=== PATIENT | male | born 1925 | race Caucasian/White ===

== ENCOUNTER 2016-12-26 18:17 | Inpatient (IN) | payer MEDICARE, BC ==
[2016-12-26] MEDS ORDERED: Aspirin Low Dose CHEW TAB* 81 MG PO ONE (18:31)
[2016-12-26 19:26] LABS: Hematocrit 36 % (42-52); Hemoglobin 11.9 g/dl (14.0-18.0); Mean Corpuscular HGB Conc 33 g/dl (31-36); Mean Corpuscular Hemoglobin 31 pg (27-31); Mean Corpuscular Volume 94 fL (80-94); Mean Platelet Volume 8 um3 (7.4-10.4); Red Blood Count 3.82 10^6/ul (4.0-5.4); Red Cell Distribution Width 14 % (10.5-15); White Blood Count 7.8 10^3/ul (3.5-10.8)
--- NOTE | 2016-12-26 19:26 | RAD ---
Indication: Tachycardia. Single frontal view of the chest performed at 1850 hours was reviewed. Comparison is made with previous exam dated February 18, 2013. No mediastinal shift is noted. Heart is of normal size and configuration. Lung roberson appear clear. IMPRESSION: NO ACTIVE CARDIOPULMONARY DISEASE IS NOTED.
[2016-12-26 19:41] LABS: Albumin 3.7 g/dL (3.2-5.2); Calcium 8.8 mg/dL (8.6-10.3); EGFR African American 100.9 (>60); EGFR Non-African American 78.4 (>60); Globulin 2.8 g/dL (2-4); Magnesium 2.1 mg/dL (1.9-2.7); Potassium 4.1 mmol/L (3.5-5.0); Total Bilirubin 0.6 mg/dL (0.2-1.0); Total Protein 6.5 g/dL (6.4-8.9)
[2016-12-26 19:49] LABS: Troponin I 0.12 ng/mL (<0.04)
[2016-12-26] MEDS ORDERED: Diltiazem TAB* 30 MG PO ONE (20:13)
[2016-12-26 20:20] LABS: TSH (Thyroid Stimulating Horm) 2.43 mcIU/mL (0.34-5.60)
[2016-12-26 20:27] LABS: Free T4 0.93 ng/dL (0.61-1.12)
[2016-12-26] MEDS ORDERED: NS 0.9% 500 ML BAG* 500 ML IV SCH (21:00)
[2016-12-26] MEDS ORDERED: Diltiazem TAB* 30 MG ONE (21:27)
[2016-12-26] MEDS: Metoprolol Tartrate TAB* 25 MG PO SCH (21:32)
[2016-12-26] MEDS ORDERED: NS 0.9% 500 ML BAG* 500 ML IV ONE (22:00)
[2016-12-27] MEDS: Enoxaparin(*) 80 MG/0.8 ML SYR SUBCUT SCH ×2 (00:21→08:50)
--- NOTE | 2016-12-27 02:47 | HP ---
HISTORY AND PHYSICAL: DATE OF ADMISSION: 12/26/16 CHIEF COMPLAINT: Shortness of breath. HISTORY OF PRESENT ILLNESS: The patient is an 89-year-old gentleman presents to [facility] with chief complaint of shortness of breath for months. He states what happened today though is he actually could not breathe at all. He said he was moving some stuff from his truck and he suddenly could not breathe. It just has gotten that much worse everyday to this point. He also thought his heart was racing at the time. He denied any nausea, vomiting, or chest pain. It only happens when he exerts himself and it is not positional. He denies any fevers or chills. Denies any cough or wheezing. In the ED, the patient was evaluated and found to be in rapid AFib when he came in and had mildly elevated troponin. PAST MEDICAL HISTORY: Significant for hypertension, benign prostatic hypertrophy, hyperlipidemia. PAST SURGICAL HISTORY: Total left knee replacement in September 2012 and cholecystectomy for perforated gallbladder. ALLERGIES: He has allergy/adverse reaction to ATORVASTATIN. FAMILY HISTORY: Significant for mother who in her 30s from a blood clot, also history of pancreatic cancer in the family. SOCIAL HISTORY: No tobacco, no alcohol, no recreational drug use. 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 His , Angelic, is his healthcare proxy. He has 5 children, but one . CURRENT MEDICATION: 1. Coenzyme Q10 mg daily. 2. Cholecalciferol 1000 units daily. 3. Aspirin 81 mg daily. 4. [place]-3 fatty acids 1000 mg daily. 5. Finasteride 2.5 mg in the morning. 6. Zestoretic unknown dose 1 tablet in the morning. REVIEW OF SYSTEMS: A 14-point of review of systems was completed with the patient. All pertinent positives and negatives are in the history of present illness, otherwise it is negative. PHYSICAL EXAMINATION GENERAL: A pleasant gentleman, sitting up in bed, in no acute distress. VITAL SIGNS: Blood pressure 126/74, pulse ox 97%, respiratory rate 19 breaths per minute, heart rate 85 beats per minute, temperature 98 degrees. HEENT: Normocephalic, atraumatic. Pupils equal, round, and reactive to light. Moist mucous membranes. NECK: Supple. No JVD, bruits, palpable thyroid, or lymphadenopathy. CHEST: Clear to auscultation and percussion bilaterally. CARDIOVASCULAR: S1 and S2 appreciated. ABDOMEN: Positive bowel sounds in all 4 quadrants. Soft, nontender, nondistended. EXTREMITIES: No cyanosis, clubbing, or edema. NEUROLOGIC: Alert and oriented x3. Moves all extremities. SKIN: No rashes or abnormalities. LABORATORY DATA: White count 7.8, hemoglobin 11.9, hematocrit 36, platelets 182,000. Sodium 135, potassium 4.1, chloride 105, CO2 23, BUN 20, creatinine 0.91, glucose is 115, troponin is 0.12. Chest x-ray was interpreted by Radiology as no active cardiopulmonary disease is noted. EKG shows AFib with a moderate ventricular response, some flipped T's in V3, V4 , and V5. Nonspecific ST-T wave changes. ASSESSMENT AND PLAN: 1. Atrial fibrillation. At times, his rate has been rapid. I will place him on metoprolol 25 mg q.8 hours. I will heparinize the patient. This may be the reason that he has been getting short of breath. I will ask the Cardiology to see him. He may benefit from [place] cardioversion. He also has an elevated troponin slightly, but I suspect it is from the atrial fibrillation, but we will cycle it. I have ordered a TTE too. 2. Hypertension, adequately controlled. Continue current regimen. Monitor and adjust accordingly if necessary. 3. Benign prostatic hypertrophy, stable, continue finasteride. 4. FEN. NPO in case of procedure in the morning. 5. DVT prophylaxis. He is on heparin drip. 6. The patient is a full code. TIME SPENT: Over 75 minutes were spent on this patient, more than 40 minutes of which spent in direct [id number] contact with the patient in evaluation, physical exam, counseling, and coordination of care. CC: Clif Montaño MD* [id number]/[facility] #: [id number] [place]
[2016-12-27] MEDS: Metoprolol Tartrate TAB* 25 MG PO SCH (05:26)
[2016-12-27 06:56] LABS: HDL Cholesterol 40.8 mg/dL
[2016-12-27 07:23] LABS: Troponin I 0.09 ng/mL (<0.04)
[2016-12-27] MEDS: Finasteride TAB* 5 MG PO SCH (08:50)
[2016-12-27] MEDS: Aspirin EC Low Dose* 81 MG TAB.EC PO SCH (08:51)
--- NOTE | 2016-12-27 08:53 | CONSULT ---
Subjective Date of Service: 12/27/16 Medications Active Medications: Aspirin (Aspirin Ec Low Dose*) 81 mg PO DAILY [facility] Last Admin: 12/27/16 08:51 Dose: 81 mg Atorvastatin Calcium (Lipitor*) 80 mg PO 1700 [facility] Dronedarone (Multaq Tab*) 400 mg PO BID [facility] Enoxaparin Sodium (Lovenox(*)) 80 mg SUBCUT Q12H [facility] Last Admin: 12/27/16 08:50 Dose: 80 mg Finasteride (Proscar Tab*) 2.5 mg PO QAM [facility] Last Admin: 12/27/16 08:50 Dose: 2.5 mg Metoprolol Tartrate (Lopressor Tab*) 25 mg PO BID [facility] Home Medications: Aspirin 81 mg PO QAM 09/13/12 [History Confirmed 12/26/16] Finasteride 2.5 mg PO QAM 09/13/12 [History Confirmed 12/26/16] Zestoretic,Prinzide 20-12.5 Mg 1 tab PO [facility] 09/13/12 [History Confirmed 09/21/12 ] Cholecalciferol [Vitamin D3] 1,000 unit PO DAILY 06/26/16 [History Confirmed ] Coenzyme Q10 (Ubidecarenone) [Co Q-10] 30 mg PO DAILY 06/26/16 [History Confirmed 12/26/16] [place]-3 Fatty Acids (Nf) [Fish Oil (NF)] 1,000 mg PO DAILY 06/26/16 [History Confirmed 12/26/16] Review of Systems - Measurements Intake and Output: Intake and Output Last 24 Hours 12/25/16 12/26/16 12/27/16 12/28/16 06:59 06:59 06:59 06:59 Intake Total 500 Balance 500 Weight 163 lb 6.4 oz Intake: IV Fluids 500 NS (0.9%) 500 Oral 0 Other: # Bowel Movements 0 # Voids 1 - Review of Systems Review of Systems Statement: All other review of systems negative, unless stated above. Objective Vital Signs: Temp Pulse Resp BP Pulse Ox 97.7 F 63 16 119/60 95 12/27/16 04:05 12/27/16 04:05 12/27/16 04:05 12/27/16 04:05 12/27/16 04:05 Laboratory Results: Total Bilirubin 0.60 mg/dL (0.2-1.0) 12/26/16 19:17 AST 41 U/L (13-39) H 12/26/16 19:17 ALT 60 U/L (7-52) H 12/26/16 19:17 Alkaline Phosphatase 103 U/L (34-104) 12/26/16 19:17 B-Natriuretic Peptide 428 pg/mL (-100) H 12/26/16 19:17 Total Protein 6.5 g/dL (6.4-8.9) 12/26/16 19: Albumin 3.7 g/dL (3.2-5.2) 12/26/16 19: Globulin 2.8 g/dL (2-4) 12/26/16 19: Albumin/Globulin Ratio 1.3 (1-3) 12/26/16 19:17 Triglycerides 64 mg/dL 12/27/16 06:26 Cholesterol 157 mg/dL 12/27/16 06:26 LDL Cholesterol 103 mg/dL 12/27/16 06:26 HDL Cholesterol 40.8 mg/dL 12/27/16 06:26 TSH 2.43 mcIU/mL (0.34-5.60) 12/26/16 19:17 12/26/16 12/27/16 12/27/16 23:19 03:30 06:26 Troponin I 0.11 H* 0.10 H* 0.09 H* Assessment/Plan Mr. Atwood is an 89 year old man admitted with symptomatic atrial fibrillation now resolved - Patient is uncertain atorvastatin history, would discharge on 10 mg of crestor -
[2016-12-27] MEDS ORDERED: Dronedarone TAB* 400 MG PO SCH (09:00)
[2016-12-27] MEDS ORDERED: Metoprolol Tartrate TAB* 25 MG PO SCH (09:00)
[2016-12-27] MEDS ORDERED: Aspirin EC Low Dose* 81 MG TAB.EC PO SCH (09:00)
--- NOTE | 2016-12-27 12:06 | PN ---
Subjective Date of Service: 12/27/16 Interval History: Mr. Atwood is sitting in bed and is noticeably diaphoretic and tachypneic. He states that this started a few minutes ago. He denies chest pain but feels like he "can't catch his breath." He has not been out of bed recently and can cite no precipitating cause. He denies dizziness, chills, palpitations. Telemetry: Sinus rhythm 68 Family History: Unchanged from Admission Social History: Unchanged from Admission Past Medical History: Unchanged from Admission Objective Active Medications: Aspirin (Aspirin Ec Low Dose*) 81 mg PO DAILY [facility] Last Admin: 12/27/16 08:51 Dose: 81 mg Dronedarone (Multaq Tab*) 400 mg PO BID [facility] Last Admin: 12/27/16 09:11 Dose: 400 mg Enoxaparin Sodium (Lovenox(*)) 80 mg SUBCUT Q12H [facility] Last Admin: 12/27/16 08:50 Dose: 80 mg Finasteride (Proscar Tab*) 2.5 mg PO QAM [facility] Last Admin: 12/27/16 08:50 Dose: 2.5 mg Metoprolol Tartrate (Lopressor Tab*) 25 mg PO BID [facility] Last Admin: 12/27/16 09:11 Dose: 25 mg Rosuvastatin Calcium (Crestor (Nf)) 10 mg PO 1700 [facility] Vital Signs 12/26/16 12/27/16 12/27/16 23:18 00:17 04:05 Temperature 97.3 F 97.5 F 97.7 F Pulse Rate 57 52 63 Respiratory 16 24 16 Rate Blood Pressure 117/59 100/47 119/60 (mmHg) O2 Sat by Pulse 97 98 95 Oximetry 12/27/16 12/27/16 07:38 08:00 Temperature 97.6 F Pulse Rate 65 Respiratory 18 16 Rate Blood Pressure 118/74 (mmHg) O2 Sat by Pulse 96 Oximetry Oxygen Devices in Use Now: Nasal Cannula - 2Lnc Appearance: Elderly male patient, sitting up in bed, tachypneic, diaphoretic Eyes: PERRLA Ears/Nose/Mouth/Throat: Clear Oropharnyx, Mucous Membranes Moist Neck: NL Appearance and Movements; NL JVP - JVD noted Respiratory: Symmetrical Chest Expansion and Respiratory Effort, Clear to Auscultation - no wheezing, rales, or rhonchi, RR 24 Cardiovascular: RRR Abdominal: NL Sounds; No Tenderness; No Distention Extremities: No Edema Skin: No Rash or Ulcers, - - diaphoretic Neurological: Alert and Oriented x 3 Lines/Tubes/Other Access: Clean, Dry and Intact Peripheral IV Nutrition: Taking PO's Result Diagrams: 12/26/16 19:17 12/26/16 19:17 Assess/Plan/Problems-Billing Assessment: Mr. Atwood is an 89 yo male with a PMH of HTN, BPH, HLD who presented to the ED on 12/26 with concern for progressive dyspnea and was found to be in atrial fibrillation. - Patient Problems (1) Systolic heart failure Code(s): I50.20 - UNSPECIFIED SYSTOLIC (CONGESTIVE) HEART FAILURE Comment: Acute, no previously known history of heart disease, per pt and family Appreciate cardiology input Echocardiogram with concern for EF of 20-25% and low gradient severe IV furosemide given by cardiology Continue metoprolol, will add UMESH-I under guidance from cardiology Plan for cardiac catheterization tomorrow to further evaluate and to screen for CAD. Daily weights, I/O (2) Aortic stenosis Code(s): I35.0 - NONRHEUMATIC AORTIC (VALVE) STENOSIS Comment: Newly diagnosed Patient with increasing SOB and activity intolerance over past several weeks EF 20-25% on echocardiogram Plan for cardiac catheterization tomorrow to evaluate structures and screen for CAD (3) Atrial fibrillation Code(s): I48.91 - UNSPECIFIED ATRIAL FIBRILLATION Comment: Patient spontaneously converted. Appreciate cardiology consult. Continue amiodarone, metoprolol succinate per cardiology (4) HTN (hypertension) Code(s): I10 - ESSENTIAL (PRIMARY) HYPERTENSION Comment: Normotensive. Continue metoprolol Add UMESH-I per cardiology (5) HLD (hyperlipidemia) Code(s): E78.5 - HYPERLIPIDEMIA, UNSPECIFIED Comment: Previously managed with diet, on [place] 3 Given risk factors, patient started on rosuvastatin (previous adverse reaction to atorvastatin) (6) BPH (benign prostatic hyperplasia) Code(s): N40.0 - BENIGN PROSTATIC HYPERPLASIA WITHOUT LOWER URINRY TRACT SYMP Comment: Continue finasteride. (7) DVT prophylaxis Code(s): ZLU1958 - Comment: SQ enoxaparin tonight Hold AM dose in anticipation of cath Status and Disposition: Inpatient admission. Anticipate 2-4 day LOS.
[2016-12-27] MEDS: Amiodarone TAB* 400 MG PO SCH ×2 (13:31→22:07)
[2016-12-27] MEDS ORDERED: Furosemide IV* 10 MG/ML VIAL (40 MG) IV SLOW PU ONE (13:52)
[2016-12-27] MEDS ORDERED: Furosemide IV* 10 MG/ML 2 ML VIAL (20 MG) ONE (13:55)
[2016-12-27] MEDS: Furosemide IV* 10 MG/ML 2 ML VIAL (20 MG) IV SLOW PU ONE ×2 (14:00→14:04)
--- NOTE | 2016-12-27 14:01 | RAD ---
Indication: Tachypnea, dyspnea. Single frontal view of the chest performed at 1310 hours was reviewed. Comparison is made with previous exam dated December 26, 2016. No mediastinal shift is noted. There is cardiomegaly noted. Lung roberson appear clear. IMPRESSION: CARDIOMEGALY WITHOUT EVIDENCE OF ACTIVE CARDIOPULMONARY DISEASE.
--- NOTE | 2016-12-27 14:24 | CONSULT ---
Subjective Date of Service: 12/27/16 Interval History: Date of admission 12/26/2016 Date of consult: 12/27/2016 PMD: Dr. Montaño Service: Hospitalist CC: Dyspnea, chest pain, palpitations Reason for consult: AFib, cardiomyopathy, aortic stenosis HPI Mr. 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 He has felt exertional fatigue/ dyspnea for about 3 to 4 months. Over the last month or two he has noted chest tightness as well with exertion. He has had palpitations on and off for about 10 days. There was been no edema or syncope. He had lightheaded episodes yesterday. He presented with atrial fibrillation, it was reported rapid initially but first EKG shows a rate of 84 bpm. I am not sure if he received any rate control medication prior to this. He tried to leave his bed today and became severely dyspneic and diaphoretic. His echocardiogram today showed a severely reduced LVEF of 20-25% and low gradient severe aortic stenosis. He says his home BP medication was cut in 09/07 several years ago because the BP was better. He denies any prior cardiac history or evaluation. is at bedside PAST MEDICAL HISTORY: Significant for hypertension, benign prostatic hypertrophy, hyperlipidemia. PAST SURGICAL HISTORY: Total left knee replacement in September 2012 and cholecystectomy for perforated gallbladder. ALLERGIES: He has allergy/adverse reaction to ATORVASTATIN. FAMILY HISTORY: Significant for mother who in her 30s from a blood clot, also history of pancreatic cancer in the family. SOCIAL HISTORY: No tobacco, no alcohol, no recreational drug use. 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 Medications Active Medications: Amiodarone HCl (Cordarone Tab*) 400 mg PO BID [facility] Last Admin: 12/27/16 13:31 Dose: 400 mg Aspirin (Aspirin Ec Low Dose*) 81 mg PO DAILY [facility] Last Admin: 12/27/16 08:51 Dose: 81 mg Enoxaparin Sodium (Lovenox(*)) 80 mg SUBCUT ONCE ONE Stop: 12/27/16 21:01 Finasteride (Proscar Tab*) 2.5 mg PO QAM [facility] Last Admin: 12/27/16 08:50 Dose: 2.5 mg Metoprolol Succinate (Toprol Xl Tab*) 25 mg PO BID [facility] Rosuvastatin Calcium (Crestor (Nf)) 10 mg PO 1700 [facility] Home Medications: Aspirin 81 mg PO QAM 09/13/12 [History Confirmed 12/26/16] Finasteride 2.5 mg PO QAM 09/13/12 [History Confirmed 12/26/16] Zestoretic,Prinzide 20-12.5 Mg 1 tab PO QAM 09/13/12 [History Confirmed 09/21/12 ] Cholecalciferol [Vitamin D3] 1,000 unit PO DAILY 06/26/16 [History Confirmed ] Coenzyme Q10 (Ubidecarenone) [Co Q-10] 30 mg PO DAILY 06/26/16 [History Confirmed 12/26/16] [place]-3 Fatty Acids (Nf) [Fish Oil (NF)] 1,000 mg PO DAILY 06/26/16 [History Confirmed 12/26/16] Review of Systems - Measurements Intake and Output: Intake and Output Last 24 Hours 12/25/16 12/26/16 12/27/16 12/28/16 06:59 06:59 06:59 06:59 Intake Total 500 Balance 500 Weight 163 lb 6.4 oz Intake: IV Fluids 500 NS (0.9%) 500 Oral 0 Other: # Bowel Movements 0 # Voids 1 - Review of Systems Constitutional Symptoms: Positive: Weakness, Fatigue Negative: Weight Gain, Weight Loss, Fever, Night Sweats, Unexplained Falls Dermatology: Negative: Rash, Skin Lesions, Skin Lumps HEENT: Negative: Change in Hearing, Vertigo, Dental Problems Eyes: Negative: Change in Vision, Double Vision Thyroid: Negative: Cold Intolerance, Heat Intolerance, Sweatiness, Palpitations, Primary Hypothyroidism, Primary Hyperthyroidism, Weight Loss, Weight Gain Pulmonary: Positive: Respiratory Distress, Shortness of Breath, Exercise Intolerance Negative: Cough, Sputum, Hemoptysis, Wheezing, COPD, Asthma, Home Oxygen Cardiology: Positive: Chest Pain, Shortness of Breath, Palpitations, Faintness Negative: Swelling of Ankles, Peripheral Vascular Dis, Edema, Syncope, Claudication, Orthopnea Gastroenterology: Negative: Abdominal Pain, Nausea, Vomiting, Anorexia, Indigestion, Difficulty Swallowing, Constipation Genital - Urinary: Negative: Dysuria, Hematuria Musculoskeletal: Negative: Joint Pain, Joint Stiffness, Arthritis, Osteoporosis, Low Back Pain Endocrinology: Negative: Thyroid Problems, Gonadal Problems, Obesity, Diabetes, Hyperglycemia, Hypoglycemia Hematologic/Lymphatic: Positive: Use of Antiplatelet Drugs Negative: Hx Leukemia, Hx Lymphoma Neurology: Negative: Headaches, Migraines, Diplopia, Change in Balancing, Change in Coordination, Change in Memory, Change in Speech, Change in Sphincter Function Psychiatry: Negative: Depressed Mood, Adhedonia, Sexual Dysfunction, Weight Change, Guilt Feelings, Tearfulness, Unusual Fatigue Allergic/Immunologic: Positive: Hx Anaphylaxis Negative: Hx Environmental Allergies, Hx Seasonal Allergies, Hx HIV, Immunocompromise, Swollen Glands Lymph Nodes Review of Systems Statement: All other review of systems negative, unless stated above. Objective Vital Signs: Temp Pulse Resp BP Pulse Ox 97.6 F 65 18 118/74 96 12/27/16 07:38 12/27/16 07:38 12/27/16 08:00 12/27/16 07:38 12/27/16 07:38 Oxygen Devices in Use Now: Nasal Cannula - 2Lnc Appearance: nad pleasant Ears/Nose/Mouth/Throat: Mucous Membranes Moist Neck: Trachea Midline, - - + jvd Respiratory: - - mild increaed work of breathing, no rales or wheeze Cardiovascular: No Edema, - - RRR, no more than 2/6 systolic murmur, unable to appreciate other heart sounds Abdominal: NL Sounds; No Tenderness; No Distention Extremities: No Edema, No Clubbing, Cyanosis Skin: No Rash or Ulcers Neurological: Alert and Oriented x 3 Laboratory Results: 12/26/16 19:17 12/26/16 19:17 Total Bilirubin 0.60 mg/dL (0.2-1.0) 12/26/16 19:17 AST 41 U/L (13-39) H 12/26/16 19:17 ALT 60 U/L (7-52) H 12/26/16 19:17 Alkaline Phosphatase 103 U/L (34-104) 12/26/16 19:17 B-Natriuretic Peptide 428 pg/mL (-100) H 12/26/16 19:17 Total Protein 6.5 g/dL (6.4-8.9) 12/26/16 19:17 Albumin 3.7 g/dL (3.2-5.2) 12/26/16 19:17 Globulin 2.8 g/dL (2-4) 12/26/16 19:17 Albumin/Globulin Ratio 1.3 (1-3) 12/26/16 19:17 Triglycerides 64 mg/dL 12/27/16 06:26 Cholesterol 157 mg/dL 12/27/16 06:26 LDL Cholesterol 103 mg/dL 12/27/16 06:26 HDL Cholesterol 40.8 mg/dL 12/27/16 06:26 TSH 2.43 mcIU/mL (0.34-5.60) 12/26/16 19:17 12/26/16 12/26/16 12/27/16 19:17 23:19 03:30 Troponin I 0.12 H* 0.11 H* 0.10 H* 12/27/16 12/27/16 06:26 13:00 Troponin I 0.09 H* 0.05 H* Diagnostic Imaging: TTE 12/26/2016: LVEF 20-25% global hypokinesis, moderate LA dilation, RV mildly dilated with moderately reduced function, mild-mod TR, moderate to severe pHTN, mild-mod MR EKG Data: EKG 03/2013: NSR, normal ekg EKG 12/26/2016: Afib rate controlled, LVH with repolarization changes EKG 12/27/2016: NSR, LVH with repolarization changes Assessment/Plan Mr. Atwood is an 89 year old man admitted with new onset systolic HF LVEF 20-25 % in the setting of atrial fibrillation (spontaneously converted) and low gradient severe (i.e. true severe vs. 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 I recommend a RHC/LHC to further evaluate the aortic stenosis and also screen for CAD. I will discuss with Dr. Cabral - Continue metoprolol, change to toprol 25 mg PO QD - Start amiodarone 400 mg PO BID. Symptoms did improve with conversion (but still remained highly symptomatic after conversion with minimal exertion) so would like to maintain sinus rhythm, can change to 200 mg PO daily at discharge - Start low dose AceI soon - Give lasix 40 mg IV x 1 now (ordered), may need further diuresis - NPO after midnight (ordered) - Has been receiving therapeutic lovenox, give last dose this PM (ordered) Thank you for allowing me to participate in the cardiovascular care of this patient. Please do not hesitate to contact me with questions or concerns.
--- NOTE | 2016-12-27 14:35 | ECHO ---
Patient: SLIM JEAN BAPTISTE [facility] Rec#: [id number] : 1925 Date: 12/27/2016 Age: 89y Height: 162.56 cm / 64.0 in Weight: 76.2 kg / 167.9 lbs Sex: M BSA: 1.82 Room#: 448 Admit Date#: 12/26/2016 Type: Inpatient Referring: Lg Luu MD Reading: Randall Menard DO Still Pump Operator: Gemma Schroeder,RDCS,RDMS CC: Clif Montaño MD Transthoracic Echocardiogram Indication: Afib BP: 119/60 HR: 70 Rhythm: NSR Indications Atrial Fibrillation Findings History: HTN, HLD Technical Comments: The study quality is fair. Completed 1210 Left Ventricle: The left ventricular chamber size is normal. There is a prominent septal knuckle. There is global hypokinesis of the left ventricle with minor regional variation. The estimated ejection fraction is 20-25%. The left ventricular diastolic filling pattern is restrictive. Left Atrium: The left atrium is moderately dilated. Right Ventricle: The right ventricle is mildly dilated. The right ventricular global systolic function is moderately reduced. Right Atrium: The right atrial cavity size is normal. Aortic Valve: The aortic valve leaflets are severely thickened with reduced systolic excursion. There is aortic annular calcification. There is mild aortic regurgitation. There is severe aortic stenosis. The mean gradient of the aortic valve is 24 mmHg. Peak velocity 3.2 m/s, dimensionless index 0.14 The aortic valve area, by VTI's, is calculated at 0.52 cm2. Mitral Valve: Moderate mitral annular calcification present. The mitral valve leaflets are mildly thickened. There is mild to moderate mitral regurgitation. There is no evidence of mitral stenosis. Tricuspid Valve: The tricuspid valve leaflets are normal. There is mild to moderate tricuspid regurgitation. There is evidence of moderate to severe pulmonary hypertension. Pulmonic Valve: There is no evidence of pulmonic valve thickening. There is mild pulmonic regurgitation. There is no pulmonic stenosis. Pericardium: There is no significant pericardial effusion. Aorta: The aortic root appears normal. The aortic arch is not well visualized. Pulmonary Artery: The main pulmonary artery is not well visualized. Venous: The inferior vena cava is dilated. There is less than 50% respiratory change in the inferior vena cava dimension. Conclusions The left ventricular chamber size is normal. There is a prominent septal knuckle. There is global hypokinesis of the left ventricle with minor regional variation. The estimated ejection fraction is 20-25%. The left atrium is moderately dilated. The right ventricle is mildly dilated. The right ventricular global systolic function is moderately reduced. There is severe low gradient aortic stenosis (i.e. true severe vs. pseudosevere ) There is mild to moderate tricuspid regurgitation. There is evidence of moderate to severe pulmonary hypertension. No prior studies available for comparison at time of interpretation. Measurements Name Value Normal Range RVIDd (AP) 2D 3.2 cm (0.9 - 2.6) RAd ISD 4CH 4.3 cm (3.4 - 4.9) RA (A4C)W 4.6 cm (2.9 - 4.6) IVSd (2D) 1.6 cm (0.6 - 1) LVPWd (2D) 1 cm (0.6 - 1) LVIDd (2D) 4.8 cm (3.6 - 5.4) LVIDs (2D) 4.5 cm - LV FS (2D) 5 % (25 - 45) Aortic Annulus 2.1 cm (1.4 - 2.6) Ao root diameter (2D) 3.2 cm (2.1 - 3.5) Ascending Ao 3.3 cm (2.1 - 3.4) LA dimension (AP) 2D 4.9 cm (2.3 - 3.8) LAd ISD 4CH 5.1 cm (2.9 - 5.3) LA ISD 4CH W 5 cm (2.5 - 4.5) Name Value Normal Range LA ESV SP 4CH (A/L) 70.68 ml - LA ESV SP 2CH (A/L) 123.07 ml - LA ESV BP (A/L) 100.84 ml - LA ESV BP (A/L) index 55 ml/m2 - LA ESV SP 4CH (MOD) 67.38 ml - LA ESV SP 2CH (MOD) 115.96 ml - Name Value Normal Range MV E-wave Vmax 1 m/sec - MV deceleration time 147.4 msec - MV A-wave Vmax 0.3 m/sec - MV E:A ratio 3.4 ratio - LV septal e' Vmax 0.05 m/sec - LV lateral e' Vmax 0.07 m/sec - LV E:e' septal ratio 20 ratio - LV E:e' lateral ratio 15 ratio - Name Value Normal Range AV Vmax 3.2 m/sec - AV VTI 72 cm - AV peak gradient 41 mmHg - AV mean gradient 24 mmHg - LVOT diameter 2.2 cm - LVOT Vmax 0.4 m/sec - LVOT VTI 10 cm - LVOT peak gradient 0.6 mmHg - LVOT mean gradient 0.4 mmHg - DOI (VTI) 0.1 ratio - YASMIN (continuity VTI) 0.52 cm2 - Name Value Normal Range MV Vmax 1 m/sec - MV VTI 20.5 cm - MV peak gradient 4 mmHg - MV mean gradient 1.1 mmHg - MV PHT 53 msec - MR Vmax 4.8 m/sec - MR VTI 174.6 cm - MVA (PHT) 4.2 cm2 - MVA (continuity VTI) 1.8 cm2 - Name Value Normal Range TR Vmax 3.6 m/sec - TR peak gradient 52 mmHg - RAP 8 mmHg - RVSP 60 mmHg - IVC diameter 2.5 cm - Name Value Normal Range PV Vmax 0.6 m/sec - PV peak gradient 1.4 mmHg -
[2016-12-27] MEDS ORDERED: CMC:Rosuvastatin (NF) 20 MG TAB PO SCH (17:00)
[2016-12-27] MEDS ORDERED: Atorvastatin* 80 MG TAB PO SCH (17:00)
[2016-12-27] MEDS ORDERED: Metoprolol Succinate XL TAB* 25 MG PO SCH (21:00)
[2016-12-27] MEDS ORDERED: Enoxaparin(*) 80 MG/0.8 ML SYR SUBCUT ONE (21:00)
[2016-12-28 08:12] LABS: Hematocrit 36 % (42-52); Hemoglobin 12.1 g/dl (14.0-18.0); Mean Corpuscular HGB Conc 34 g/dl (31-36); Mean Corpuscular Hemoglobin 32 pg (27-31); Mean Corpuscular Volume 94 fL (80-94); Mean Platelet Volume 9 um3 (7.4-10.4); Red Blood Count 3.83 10^6/ul (4.0-5.4); Red Cell Distribution Width 14 % (10.5-15); White Blood Count 10.4 10^3/ul (3.5-10.8)
[2016-12-28 08:28] LABS: BUN/Creatinine Ratio 29.6 (8-20); Calcium 8.4 mg/dL (8.6-10.3); EGFR Non-African American 59.9 (>60)
[2016-12-28] MEDS: Amiodarone TAB* 400 MG PO SCH ×2 (09:38→21:39)
[2016-12-28] MEDS: Aspirin EC Low Dose* 81 MG TAB.EC PO SCH (09:38)
[2016-12-28] MEDS: Finasteride TAB* 5 MG PO SCH (09:39)
[2016-12-28] MEDS: Metoprolol Succinate XL TAB* 25 MG PO SCH (09:39)
[2016-12-28] MEDS ORDERED: fentaNYL* 50 MCG/ML 2 ML VIAL (100 MCG VIAL) ONE ×2 (12:54→14:08)
[2016-12-28] MEDS ORDERED: Heparin 2 UNITS/ML IVPREMIX* 3,000 ML IV ONE (12:54)
[2016-12-28] MEDS ORDERED: Lidocaine 1% INJ* 10 MG/ML 30 ML SDV ONE (12:54)
[2016-12-28] MEDS ORDERED: Midazolam* 1 MG/ML 5 ML VIAL (5 MG) ONE (12:54)
[2016-12-28] MEDS ORDERED: Iodixanol* (CONTRAST) 320 MG/ML 100 ML SDV ONE (12:55)
[2016-12-28] MEDS ORDERED: Heparin 2 UNITS/ML IVPREMIX* 1,000 ML IV ONE (12:55)
[2016-12-28] MEDS ORDERED: Acetaminophen TAB* 325 MG PO PRN (14:25)
[2016-12-28] MEDS ORDERED: NS 0.9% 1000 ML* 500 ML IV SCH (14:30)
[2016-12-28] MEDS ORDERED: NS 0.9% 1000 ML* 500 ML IV PRN (14:31)
--- NOTE | 2016-12-28 15:23 | PN ---
Subjective Date of Service: 12/28/16 Interval History: This is an 89 yo gentleman with a h/o HTN, BPH and HLD who presented with SOB and palpitations, initially noted to be in atrial fibrillation. Echo showed a severely depressed EF at 20-25% as well as severe . He underwent a diagnostic cath today with Dr Cabral. Patient remains severely dyspneic with any activity. Denies any new complaints. Objective Active Medications: Acetaminophen (Tylenol Tab*) 650 mg PO Q4H PRN PRN Reason: PAIN - MILD Amiodarone HCl (Cordarone Tab*) 400 mg PO BID [facility] Last Admin: 12/28/16 09:38 Dose: 400 mg Aspirin (Aspirin Ec Low Dose*) 81 mg PO DAILY [facility] Last Admin: 12/28/16 09:38 Dose: 81 mg Finasteride (Proscar Tab*) 2.5 mg PO QAM [facility] Last Admin: 12/28/16 09:39 Dose: 2.5 mg Sodium Chloride (Ns 0.9% 1000 Ml*) 500 mls @ 75 mls/hr IV .per rate PRN PRN Reason: SEE COMMENT Metoprolol Succinate (Toprol Xl Tab*) 25 mg PO DAILY [facility] Last Admin: 12/28/16 09:39 Dose: 25 mg Rosuvastatin Calcium (Crestor (Nf)) 10 mg PO 1700 [facility] Vital Signs: Temp Pulse Resp BP Pulse Ox 97.6 F 49 16 124/63 94 12/28/16 14:43 12/28/16 15:07 12/28/16 11:28 12/28/16 15:00 12/28/16 15:07 Appearance: Well appearing elderly gentleman accompanied by his and daughter, in NAD Respiratory: Symmetrical Chest Expansion and Respiratory Effort, Clear to Auscultation Cardiovascular: RRR, - - faint murmur appreciated Abdominal: NL Sounds; No Tenderness; No Distention Skin: No Rash or Ulcers Neurological: Alert and Oriented x 3 Result Diagrams: 12/28/16 07:31 12/28/16 07:31 Diagnostic Imaging: Echo - EF 20-25%, severe Tele - sinus with PVCs Cardiac cath - severe with 95% RCA stenosis, some degree of MR Assess/Plan/Problems-Billing Assessment: Mr. Atwood is an 89 yo male with a PMH of HTN, BPH, HLD who presented to the ED on 12/26 with concern for progressive dyspnea and was found to be in atrial fibrillation with severely depressed EF and . - Patient Problems (1) Aortic stenosis Comment: Diagnostic cath today confirms presence of severe Spoke with Dr Cabral who plans to coordinate with Dr Hoffman, TAVR specialist out of [place], tomorrow Will likely require transfer to [place] for AVR (2) CAD (coronary artery disease) Comment: 95% RCA stenosis Dr Cabral reported it was a small vessel No plan for intervention at this time May require intervention at time of AVR vs. med management Cont ASA, statin and BB (3) Systolic heart failure Comment: Likely non-ischemic, secondary to Appears fully compensated at this time Appreciate cardiology input Echocardiogram with concern for EF of 20-25% and severe Continue metoprolol, lisinopril added Cont daily weights, I/O (4) Atrial fibrillation Comment: Patient spontaneously converted, remains sinus Appreciate cardiology consult. Continue amiodarone, metoprolol succinate per cardiology No anticoagulation recommended at this time (5) HTN (hypertension) Comment: Normotensive. Continue metoprolol Add Lisinopril per cardiology (6) HLD (hyperlipidemia) Comment: Previously managed with diet, on [place] 3 Given risk factors, patient started on rosuvastatin (previous adverse reaction to atorvastatin) (7) BPH (benign prostatic hyperplasia) Comment: Continue finasteride. (8) DVT prophylaxis Comment: Lovenox Status and Disposition: Inpatient admission. Pending transfer to [place] for AVR, unclear timing
[2016-12-28] MEDS: Enoxaparin(*) 40 MG/0.4 ML SYR SUBCUT SCH (17:26)
[2016-12-28] MEDS ORDERED: Furosemide IV* 10 MG/ML 2 ML VIAL (20 MG) IV ONE (17:39)
[2016-12-28] MEDS: Metoprolol Tartrate IV* 1 MG/ML 5 ML VIAL IV ONE ×2 (20:25→20:31)
[2016-12-29 07:33] LABS: BUN/Creatinine Ratio 30.2 (8-20); Calcium 8.4 mg/dL (8.6-10.3); EGFR African American 84.6 (>60); EGFR Non-African American 65.8 (>60); Potassium 3.9 mmol/L (3.5-5.0)
--- NOTE | 2016-12-29 07:39 | CATH ---
CARDIAC CATHETERIZATION: DATE OF PROCEDURE: 12/28/16 - ROOM #[id number] PROCEDURES: Cardiac catheterization including right heart catheterization, left heart catheterization, left ventriculogram, coronary angiography. INDICATION FOR PROCEDURE: Aortic stenosis. HISTORY: The patient is an 89-year-old gentleman with very little past medical history who was admitted to the hospital with congestive heart failure. An echocardiogram showed severely reduced LV systolic function, ejection fraction of 30% with severe aortic stenosis. Cardiac catheterization was recommended for further evaluation. DESCRIPTION OF PROCEDURE: The patient was brought to the catheterization lab in a fasting state. Informed consent had been obtained prior to the procedure. All labs had been reviewed. The patient was placed supine on the catheterization table. Both femoral areas were cleaned and draped in the usual fashion. 1% lidocaine was used for local anesthesia. The right femoral vein was entered by a modified Seldinger technique and an 8-Spanish sheath introducer was placed. The patient underwent right heart catheterization using a balloon- tip [place] catheter. Multiple hemodynamic and oxygen saturation readings were recorded. The right femoral artery was entered via modified Seldinger technique and a 6-Spanish sheath introducer was placed. The patient underwent left ventriculogram. Coronary angiography using a 6-Spanish pigtail catheter, a 6-Spanish JL4 catheter, a 6-Spanish JR4 catheter. At the end of the procedure, an angiogram of the femoral artery demonstrated normal position of the catheter and a Mynx closure device was deployed. The patient tolerated the procedure well. There were no complications. A total of 80 cc of Visipaque dye was used. A total of 9.5 minutes of fluoro time was used. The patient tolerated the procedure well. There were no complications. FINDINGS: 1. Hemodynamics: Right atrial pressure with a mean of 17. Right ventricular pressure of 64/13 with an end diastolic pressure of 20. Pulmonary capillary wedge pressure of 34. Pulmonary artery pressure of 66/26 with a mean of 43. Central aortic blood pressure 129/66 with a mean of 91. Left ventricular pressure 156/20 with an end-diastolic pressure of 31. Cardiac output by Osman 2.4 L per minute. Cardiac output by thermal dilution 2.9 L per minute. Aortic valve with a mean gradient of 20 mmHg. Calculated valve area by thermodilution 2.74 sq cm. Valve area index to body surface was 0.4 sq cm. Oxygen saturation : Central aortic saturation 96%, pulmonary artery saturation 40%, right atrial saturation 44%. 2. Left ventriculogram: Left ventricle was mildly dilated. Overall systolic function of the left ventricle is superiorly reduced. Estimated ejection fraction 25% to 30%. There is global hypokinesis. There is 3+ mitral regurgitation. The aortic valve appears calcified and restricted. The ascending aorta appears normal in size. CORONARY ARTERIES: Left main: The left main was normal in size. It bifurcated into the LAD and circumflex. There was no evidence of stenosis. Left anterior descending artery: LAD was normal in size. It gave off 2 diagonal vessels. There was no evidence of stenosis. Left circumflex artery: The circumflex artery was normal in size. It gave off 2 obtuse marginal branches. There is no evidence of stenosis. Right coronary: The RCA was normal in size. It was a dominant vessel. It gave off a small PDA of less than 1 mm in size. The mid right coronary artery had an eccentric 95% stenosis just before the RV marginal branch. The remainder of the vessel was without disease. IMPRESSION: 1. Moderate pulmonary hypertension. 2. Low normal cardiac output. 3. Severe aortic stenosis. 4. Severe left ventricular dysfunction with an ejection fraction of less than 30% with global hypokinesis. 5. Critical stenosis to the mid right coronary artery although the RCA itself was a small vessel. 6. Mynx closure device to the right femoral artery. RECOMMENDATION: The patient will be evaluated for aortic valve replacement and potentially mitral valve repair. [id number]/[facility] #: [id number] MTDD
[2016-12-29 07:48] LABS: Magnesium 2.1 mg/dL (1.9-2.7)
--- NOTE | 2016-12-29 08:47 | ED ---
Katlyn Anglin Matthew, scribed for Parish Pantoja MD on 12/26/16 at 1848 . Shortness of Breath - HPI Summary HPI Summary: An 89 y/o male presents to the ED for 5 star for SOB since 3 days with exertion. Associated symptoms include chest pain descried as tightness - not pain currently, weakness, and decreased appetite. The patient denies cough, fever, diaphoresis, and chills. Hx of AFib and dislocation of the left shoulder. The patient was given aspirin at 5 star, and cardizem in the EMS. He is not currently on blood thinners and takes aspirin daily. The patient drinks coffee and wine every night. The patient has never smoked. - History of Current Complaint Time Seen by Provider: 12/26/16 18:31 Hx Obtained From: Patient Onset/Duration: Lasting Days, Still Present Current Severity: None Dyspnea At: Exertion Associated Signs & Symptoms: Chest Pain Unrelated to Cough - Allergy/Home Medications Allergies/Adverse Reactions: Allergies Allergy/AdvReac Type Severity Reaction Status Date / Time Atorvastatin [From Lipitor] Allergy Mild Muscle Ache Verified 09/21/12 07:50 PMH/Surg Hx/FS Hx/Imm Hx Endocrine/Hematology History: Denies: Hx Diabetes Cardiovascular History: Reports: Hx Hypercholesterolemia, Hx Hypertension - CONTROL WITH MEDICATION Denies: Hx Congestive Heart Failure, Hx Pacemaker/ICD Respiratory History: Denies: Hx Asthma, Hx Chronic Obstructive Pulmonary Disease (COPD) History: Reports: Hx Benign Prostatic Hyperplasia Denies: Hx Dialysis, Hx Renal Disease, Other Problems/Disorders Musculoskeletal History: Reports: Hx Arthritis - OSTEOARTHRITIS LEFT KNEE, Other Musculoskeletal History - 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 Sensory History: Reports: Hx Cataracts - BILATERAL - HISTORY, Hx Contacts or Glasses - GLASSES Denies: Hx Hearing Aid Opthamlomology History: Reports: Hx Cataracts - BILATERAL - HISTORY, Hx Contacts or Glasses - GLASSES Neurological History: Reports: Other Neuro Impairments/Disorders - vertigo Denies: Hx Dementia, Hx Seizures Psychiatric History: Denies: Hx Panic Disorder - Surgical History Surgery Procedure, Year, and Place: gallbladder,lt knee replacement Hx Anesthesia Reactions: No Infectious Disease History: Denies: Traveled Outside the [place] in Last 30 Days - Family History Family History: No FHx of malignant hyperthermia. No FHx of anesthesia reaction - Social History Alcohol Use: None Substance Use Type: Reports: None Smoking Status (MU): Never Smoked Tobacco Review of Systems Constitutional: Other - decreased appetite Negative: Fever, Skin Diaphoresis Eyes: Negative Negative: Erythema ENT: Negative Negative: Sore Throat Positive: Chest Pain - described as tightness Positive: Shortness Of Breath. Negative: Cough Gastrointestinal: Negative Negative: Abdominal Pain, Vomiting, Diarrhea, Nausea Genitourinary: Negative Negative: no symptoms reported, dysuria Musculoskeletal: Negative Negative: Myalgia, Edema Skin: Negative Negative: Rash Neurological: Negative Negative: Headache Psychological: Normal All Other Systems Reviewed And Are Negative: Yes Physical Exam Triage Information Reviewed: Yes Vital Signs On Initial Exam: Initial Vitals Pulse Ox 97 12/26/16 18:33 Vital Signs Reviewed: Yes Skin: Positive: Warm, Dry Head/Face: Positive: Other - Normocephalic; Atraumatic Eyes: Positive: Conjunctiva Clear Neck: Positive: No Lymphadenopathy, Other: - Full ROM; No JVD Respiratory/Lung Sounds: Positive: Other - Normal Effort; No respiratory distress. Negative: Rales, Stridor, Tracheal Deviation, Wheezes Cardiovascular: Positive: IRR, Other - Intact distal pulses; The pedal pulses are 2+ and symmetric. Radial pulses are 2+ and symmetric Abdomen Description: Positive: Nontender, Soft, Other: - No Rebound. Negative: Distended, Guarding Bowel Sounds: Positive: Present Musculoskeletal: Negative: Edema Left, Edema Right Neurological: Positive: Alert, Oriented to Person Place, Time Psychiatric: Positive: Affect/Mood Appropriate Diagnostics - Vital Signs Vital Signs Pulse Ox 12/26/16 18:33 97 - Laboratory Result Diagrams: 12/26/16 19:17 12/26/16 19:17 Lab Statement: Any lab studies that have been ordered have been reviewed, and results considered in the medical decision making process. - Radiology CXR Xray Interpretation: No Acute Changes - IMPRESSION: NO ACTIVE CARDIOPULMONARY DISEASE IS NOTED. Radiology Interpretation Completed By: Radiologist - EKG 18:40 Cardiac Rate: NL - 84 bpm EKG Rhythm: Atrial Fibrillation EKG Interpretation: No STEMI; New TWI in V3-V6 Course/Dx - Course Assessment/Plan: An 89 y/o male presents to the ED for 5 star for SOB since 3 days with exertion. Associated symptoms include chest pain descried as tightness - not pain currently, weakness, and decreased appetite. The patient denies cough, fever, diaphoresis, and chills. Hx of AFib and dislocation of the left shoulder. The patient was given aspirin at 5 star, and Cardizem in the EMS. He is not currently on blood thinners and takes aspirin daily. Labs were reviewed and show troponin of 0.12. CXR shows no active cardiopulmonary disease. EKG shows AFib at 84 bpm with new TWI in v3-v6. In the ED course, the patient was given Cardizem and aspirin. Discussed the case with Eric Chong who will admit the patient into his services. - Diagnoses Provider Diagnoses: Chest pain, unspecified, Elevated troponin, Dyspnea on exertion, Rapid atrial fibrillation - Physician Notifications Discussed Care of Patient With: Eric Chong (VICTORINO) at 20:20 -- Notified of patient's history and will admit the patient. Discharge - Discharge Plan Condition: Stable Disposition: ADMITTED TO [facility] Referrals: Clif Montaño MD [Primary Care Provider] - The documentation as recorded by the Katlyn bailey Matthew accurately reflects the service I personally performed and the decisions made by , Parish Pantoja MD.
[2016-12-29] MEDS ORDERED: Lisinopril TAB* 5 MG PO SCH (09:00)
[2016-12-29] MEDS: Amiodarone TAB* 400 MG PO SCH ×2 (09:23→20:49)
[2016-12-29] MEDS: Aspirin EC Low Dose* 81 MG TAB.EC PO SCH (09:23)
[2016-12-29] MEDS: Metoprolol Succinate XL TAB* 25 MG PO SCH (09:24)
[2016-12-29] MEDS: Finasteride TAB* 5 MG PO SCH (09:24)
--- NOTE | 2016-12-29 14:46 | PN ---
Subjective Date of Service: 12/29/16 Interval History: Patient continues to be dyspneic with activity, but asx at rest. No new complaints. Objective Active Medications: Acetaminophen (Tylenol Tab*) 650 mg PO Q4H PRN PRN Reason: PAIN - MILD Amiodarone HCl (Cordarone Tab*) 400 mg PO BID [facility] Last Admin: 12/29/16 09:23 Dose: 400 mg Aspirin (Aspirin Ec Low Dose*) 81 mg PO DAILY [facility] Last Admin: 12/29/16 09:23 Dose: 81 mg Enoxaparin Sodium (Lovenox(*)) 40 mg SUBCUT Q24H [facility] Last Admin: 12/28/16 17:26 Dose: 40 mg Finasteride (Proscar Tab*) 2.5 mg PO QAM [facility] Last Admin: 12/29/16 09:24 Dose: 2.5 mg Lisinopril (Prinivil Tab*) 5 mg PO DAILY [facility] Last Admin: 12/29/16 09:23 Dose: 5 mg Metoprolol Succinate (Toprol Xl Tab*) 25 mg PO DAILY [facility] Last Admin: 12/29/16 09:24 Dose: 25 mg Rosuvastatin Calcium (Crestor (Nf)) 10 mg PO 1700 [facility] Last Admin: 12/28/16 17:24 Dose: 10 mg Vital Signs: Temp Pulse Resp BP Pulse Ox 97.5 F 57 16 104/74 98 12/29/16 11:48 12/29/16 11:48 12/29/16 11:48 12/29/16 11:48 12/29/16 11:48 Oxygen Devices in Use Now: Nasal Cannula - 2Lnc Appearance: Well appearing elderly gentleman in N[place]. Accompanied by his and daughter Respiratory: Symmetrical Chest Expansion and Respiratory Effort, Clear to Auscultation Cardiovascular: RRR, - - faint murmur appreciated Extremities: No Edema Skin: No Rash or Ulcers Neurological: Alert and Oriented x 3 Result Diagrams: 12/28/16 07:31 12/29/16 07:09 Diagnostic Imaging: Echo - EF 20-25%, severe Tele - sinus with PVCs Cardiac cath - severe with 95% RCA stenosis, some degree of MR Assess/Plan/Problems-Billing Assessment: Mr. Atwood is an 89 yo male with a PMH of HTN, BPH, HLD who presented to the ED on 12/26 with concern for progressive dyspnea and was found to be in atrial fibrillation with severely depressed EF and . - Patient Problems (1) Aortic stenosis Comment: Diagnostic cath today confirms presence of severe Plan for transfer to [facility] for AVR (2) CAD (coronary artery disease) Comment: 95% RCA stenosis Dr Cabral reported it was a small vessel No plan for intervention at this time May require intervention at time of AVR vs. med management Cont ASA, statin and BB (3) Systolic heart failure Comment: Likely non-ischemic, secondary to Appears fully compensated at this time Appreciate cardiology input Echocardiogram with concern for EF of 20-25% and severe Continue metoprolol, lisinopril added Cont daily weights, I/O (4) Atrial fibrillation Comment: He had one additional episode of atrial fibrillation last night, but converted to sinus with bolus of 5mg Lopressor Appreciate cardiology consult. Continue amiodarone, metoprolol succinate per cardiology No anticoagulation recommended at this time (5) HTN (hypertension) Comment: Normotensive. Continue metoprolol Add Lisinopril per cardiology (6) HLD (hyperlipidemia) Comment: Previously managed with diet, on [place] 3 Given risk factors, patient started on rosuvastatin (previous adverse reaction to atorvastatin) (7) BPH (benign prostatic hyperplasia) Comment: Continue finasteride. (8) DVT prophylaxis Comment: Lovenox Status and Disposition: Inpatient admission. Pending transfer to [facility] for TAVR, awaiting bed offer from transfer center
[2016-12-29] MEDS: Enoxaparin(*) 40 MG/0.4 ML SYR SUBCUT SCH (15:50)
[2016-12-29 22:08] VITALS: BP 120/62
--- NOTE | 2016-12-30 01:43 | TRS ---
TRANSFER SUMMARY: DATE OF ADMISSION: 12/26/16 ANTICIPATED DATE OF TRANSFER: 12/29/16 PRIMARY CARE PROVIDER: Clif Montaño MD CONSULTING CHAPERONE: Best Cabral MD DISCHARGING PROVIDER: VICTORINO Carr SUPERVISING PHYSICIAN: Yancy Bello MD * (DICTATED BY VICTORINO CARR) ACCEPTING PHYSICIAN: Dr. Hoffman at [facility]. PRIMARY DISCHARGE DIAGNOSES: 1. Severe aortic stenosis with pending TAVR. 2. Acute systolic heart failure with ejection fraction of 20% to 25%, now compensated. 3. 95% RCA stenosis. 4. Atrial fibrillation. SECONDARY DISCHARGE DIAGNOSES: 1. Hypertension. 2. Benign prostatic hyperplasia. 3. Hyperlipidemia. DISCHARGE MEDICATIONS: 1. Zestoretic/Prinzide 20/12.5 mg tablet p.o. daily. 2. Amiodarone 400 mg p.o. twice daily. 3. Aspirin 81 mg p.o. daily. 4. Vitamin D3 1000 units p.o. daily. 5. Coenzyme Q10 30 mg p.o. daily. 6. Finasteride 2.5 mg p.o. daily. 7. Lisinopril 5 mg p.o. daily. 8. Metoprolol succinate 25 mg p.o. daily. 9. [place]-3 fatty acid 1000 mg p.o. daily. 10. Crestor 10 mg p.o. daily. MEDICATION CHANGES: 1. Start lisinopril. 2. Start metoprolol succinate. 3. Start amiodarone. HOSPITAL IMAGIN. Chest x-ray, 12/26/16, shows no acute process. 2. Chest x-ray, 12/27/16, shows cardiomegaly without evidence of acute cardiopulmonary process. 3. EKG, 12/26/16, demonstrates atrial fibrillation with a rate of approximately 84 without acute ischemic changes. 4. EKG, 12/27/16, shows a sinus rhythm with biphasic and inverted T-waves in precordial leads. 5. EKG, 12/28/16, shows atrial fibrillation with a rate of about 110 beats per minute. 6. EKG, 12/29/16, shows a sinus rhythm, again with biphasic or inverted T- waves in precordial leads. 7. Transthoracic echocardiogram, 12/26/16, demonstrates global hypokinesis of the left ventricle with estimated ejection fraction of 20% to 25%. Right ventricular systolic function is moderately reduced as well. There is a severe low gradient aortic stenosis, [id number] tricuspid regurg, and evidence of moderate-to- severe pulmonary hypertension. 8. Cardiac catheterization, 12/28/16, demonstrates dilated left ventricle with EF of 25% to 30% with 3+ mitral regurg and aortic valve appears calcified and restricted. Moderate pulmonary hypertension noted. Critical stenosis of the mid right coronary artery, which appears to be a small caliber vessel. HOSPITAL COURSE: This is a very pleasant 89-year-old gentleman with history of hypertension, BPH, and hyperlipidemia, who presented to the emergency department with complaints of shortness of breath and palpitations. The patient was initially noted to be in atrial fibrillation. His rate was initially fast, but initial EKG demonstrated a rate of 80 beats per minute. The patient was started on amiodarone and he spontaneously converted to a sinus rhythm. Initial labs demonstrated relatively normal CBC with the exception of hemoglobin of 11.9 with normal indices. Comprehensive metabolic panel showed mildly elevated AST and ALT of 41 and 60 respectively, but otherwise normal. Initial troponin was elevated at 0.12. TSH was within normal limits at 2.43 and BNP was mildly elevated at 428 and lactic acid normal at 1.4. The patient was subsequently admitted to the hospital for further evaluation. Serial troponins trended down to the lowest one measuring 0.05. The patient spontaneously converted to a sinus rhythm and had one additional episode of atrial fibrillation, but quickly converted back to sinus rhythm after one time bolus of IV Lopressor. The patient underwent echocardiogram, which showed a severely depressed left ventricular ejection fraction estimated at 20% to 25% as well as what appeared to be severe aortic stenosis. He underwent diagnostic catheterization with Dr. Best Cabral, confirmed presence of severe aortic stenosis on catheterization as well as a 95% RCA lesion, but this was found to be a small caliber vessel and was not specifically intervened upon. Dr. Cabral discussed the case with Dr. Hoffman at [facility] in regards to the patient's appropriateness for TAVR procedure. Dr. Hoffman agreed that he would be an appropriate TAVR candidate and transfer has been arranged to [facility] for intervention by Dr. Hoffman. DISPOSITION: The patient is being transferred to [facility] with accepting physician being Dr. Hoffman. The patient is in a normal sinus rhythm at the time of discharge. He become severely dyspneic with any activity , but maintaining appropriate oxygen saturations at rest and appears to be euvolemic. Plan for TAVR procedure and possible intervention on critical stenosis of RCA. VICTORINO CARR CC: Clfi Montaño MD* [id number]/[facility] #: [id number] [place]
== END 2016-12-29 22:40 | disposition short-term general hospital (02) | DRG 286 ==
LOC: ED 18:17 → MEDTELE 23:06
PROVIDERS: ADMIT Internal Medicine; ATTEND Internal Medicine
PROC: 4A023N8 Measurement of Cardiac Sampling and Pressure, Bilateral, Percutaneous Approach (ICD-10-PCS; principal; 2016-12-26)
PROC: B2111ZZ Fluoroscopy of Multiple Coronary Arteries using Low Osmolar Contrast (ICD-10-PCS; 2016-12-26)
PROC: B2151ZZ Fluoroscopy of Left Heart using Low Osmolar Contrast (ICD-10-PCS; 2016-12-26)
DX: I48.91 Unspecified atrial fibrillation (principal); I50.21 Acute systolic (congestive) heart failure; I27.2 Other secondary pulmonary hypertension; I42.9 Cardiomyopathy, unspecified; Z88.8 Allergy status to other drugs, medicaments and biological substances; N40.0 Benign prostatic hyperplasia without lower urinary tract symptoms; Z96.652 Presence of left artificial knee joint; H26.9 Unspecified cataract; Z80.0 Family history of malignant neoplasm of digestive organs; I11.0 Hypertensive heart disease with heart failure; E78.5 Hyperlipidemia, unspecified; I25.10 Atherosclerotic heart disease of native coronary artery without angina pectoris; Z79.82 Long term (current) use of aspirin; I08.3 Combined rheumatic disorders of mitral, aortic and tricuspid valves
CPT/HCPCS: 36415; 71010; 80048; 80053; 80061; 83605; 83735; 83880; 84439; 84443; 84484; 85025; 85027; 85379; 93005; 93306; 93460; 94760; A9270-GY; C1760; C1769; C1887; J1644; J1650; J1940; J2001; J2250; J3010

== ENCOUNTER 2017-01-11 23:25 | Emergency (ER) | payer MEDICARE, BC ==
--- NOTE | 2017-01-12 00:11 | ED ---
Katlyn Anglin Matthew, scribed for Mateo Ruano MD on 01/11/17 at 2334 . Throat Pain/Nasal Congestion - HPI Summary HPI Summary: An 89 y/o male presents to the ED with constant, sudden bleeding from the gums since 12:00 today. The pain is rated 0/10 in severity. The patient has gum surgery on 01/06/17. He's on blood thinners at this time. - History of Current Complaint Chief Complaint: EDGeneral Hx Obtained From: Patient Onset/Duration: Lasting Hours, Still Present Severity: Moderate Cough: None - Allergies/Home Medications Allergies/Adverse Reactions: Allergies Allergy/AdvReac Type Severity Reaction Status Date / Time Atorvastatin Allergy Muscle Ache Verified 12/27/16 03:00 PMH/Surg Hx/FS Hx/Imm Hx Endocrine/Hematology History: Denies: Hx Diabetes, Hx Thyroid Disease Cardiovascular History: Reports: Hx Hypercholesterolemia, Hx Hypertension - CONTROL WITH MEDICATION Denies: Hx Congestive Heart Failure, Hx Pacemaker/ICD, Hx Peripheral Vascular Disease Respiratory History: Denies: Hx Asthma, Hx Chronic Obstructive Pulmonary Disease (COPD) History: Reports: Hx Benign Prostatic Hyperplasia Denies: Hx Dialysis, Hx Renal Disease, Other Problems/Disorders Musculoskeletal History: Reports: Hx Arthritis - OSTEOARTHRITIS LEFT KNEE, Other Musculoskeletal History - 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 Denies: Hx Osteoporosis Sensory History: Reports: Hx Cataracts - BILATERAL - HISTORY, Hx Contacts or Glasses - GLASSES, Hx Hearing Problem - [place] Denies: Hx Hearing Aid Opthamlomology History: Reports: Hx Cataracts - BILATERAL - HISTORY, Hx Contacts or Glasses - GLASSES Neurological History: Reports: Other Neuro Impairments/Disorders - vertigo Denies: Hx Dementia, Hx Headaches, Hx Seizures Psychiatric History: Denies: Hx Panic Disorder - Surgical History Surgery Procedure, Year, and Place: gallbladder,lt knee replacement Hx Anesthesia Reactions: No Infectious Disease History: Denies: Traveled Outside the [place] in Last 30 Days - Family History Family History: No FHx of malignant hyperthermia. No FHx of anesthesia reaction - Social History Alcohol Use: None Alcohol Amount: glass of wine Substance Use Type: Reports: None Smoking Status (MU): Never Smoked Tobacco Review of Systems Constitutional: Negative Eyes: Negative ENT: Other - Bleeding from the gums Cardiovascular: Negative Respiratory: Negative Gastrointestinal: Negative Genitourinary: Negative Musculoskeletal: Negative Skin: Negative Neurological: Negative Psychological: Normal All Other Systems Reviewed And Are Negative: Yes Physical Exam Triage Information Reviewed: Yes Vital Signs On Initial Exam: Initial Vitals Temp Pulse Resp BP Pulse Ox 98.2 F 95 20 141/83 97 01/11/17 23:35 01/11/17 23:35 01/11/17 23:35 01/11/17 23:35 01/11/17 23:35 Vital Signs Reviewed: Yes Appearance: Positive: Well-Appearing, Well-Nourished Skin: Positive: Warm Head/Face: Positive: Normal Head/Face Inspection Dental: Positive: Other - oozing from gums at site of dental extrax=ction Neck: Positive: Supple Respiratory/Lung Sounds: Positive: Breath Sounds Present Cardiovascular: Positive: RRR Abdomen Description: Positive: No Organomegaly, Soft Neurological: Positive: Alert, Oriented to Person Place, Time Diagnostics - Vital Signs Vital Signs Temp Pulse Resp BP Pulse Ox 01/11/17 23:35 98.2 F 95 20 141/83 97 - Laboratory Result Diagrams: 01/12/17 00:05 01/12/17 00:05 Lab Statement: Any lab studies that have been ordered have been reviewed, and results considered in the medical decision making process. Re-Evaluation - Re-Evaluation First Eval Change: Improved - bleeding subsided, pt to f/u with dental today EENT Course/Dx - Course Assessment/Plan: An 89 y/o male presents to the ED with bleeding from the gums since 12:00 today. The patient had gum surgery on 01/06/17. He's on blood thinners at this time. Labs were reviewed. The patient will follow-up with his dentist tomorrow. - Diagnoses Provider Diagnoses: Gums, bleeding Discharge - Discharge Plan Condition: Stable Disposition: HOME Referrals: Clif Montaño MD [Primary Care Provider] - 4 Days Additional Instructions: Please follow-up with your dentist today. Return to the ED if your bleeding worsens. The documentation as recorded by the Katlyn bailey Matthew accurately reflects the service I personally performed and the decisions made by me, Mateo Ruano MD.
[2017-01-12 00:17] LABS: Hematocrit 35 % (42-52); Hemoglobin 11.4 g/dl (14.0-18.0); Mean Corpuscular HGB Conc 32 g/dl (31-36); Mean Corpuscular Hemoglobin 30 pg (27-31); Mean Corpuscular Volume 94 fL (80-94); Mean Platelet Volume 9 um3 (7.4-10.4); Red Blood Count 3.73 10^6/ul (4.0-5.4); Red Cell Distribution Width 14 % (10.5-15)
[2017-01-12 00:31] LABS: BUN/Creatinine Ratio 18.3 (8-20); Calcium 8.9 mg/dL (8.6-10.3); EGFR Non-African American 59.9 (>60); Potassium 4.1 mmol/L (3.5-5.0)
[2017-01-12 02:37] VITALS: BP 112/44
== END 2017-01-12 02:38 | disposition home or self-care (01) ==
LOC: ED 23:25
DX: K06.8 Other specified disorders of gingiva and edentulous alveolar ridge (principal); I10 Essential (primary) hypertension; E78.00 Pure hypercholesterolemia, unspecified; Z79.01 Long term (current) use of anticoagulants
CPT/HCPCS: 36415; 80048; 85025; 85610; 99282